=== PATIENT | male | born 1955 ===

== ENCOUNTER 2021-09-10 15:22 | Emergency (ER) | payer BC ==
[2021-09-10] MEDS: Sodium Chloride 0.9% 10 ML Syringe FLUSH PRN ×2 (17:54→19:23)
[2021-09-10] MEDS ORDERED: Sodium Chloride 0.9% 10 ML Syringe FLUSH ONE (18:15)
[2021-09-10] MEDS ORDERED: Iopamidol 612 MG/ML 50 ML SDV IVPUSH ONE (18:15)
[2021-09-10] MEDS ORDERED: Sodium Chloride 0.9% 100 ML IV SCH (18:15)
[2021-09-10] MEDS ORDERED: Iopamidol 612 MG/ML 100 ML Bottle IVPUSH ONE (18:15)
== END 2021-09-10 21:40 ==
LOC: JD.ED 15:22
DX: K83.8 Other specified diseases of biliary tract (principal); I10 Essential (primary) hypertension; K21.9 Gastro-esophageal reflux disease without esophagitis; Z79.899 Other long term (current) drug therapy; Z86.16 Personal history of COVID-19
CPT/HCPCS: 36415; 71275; 74177; 80053; 82977; 83690; 84484; 85025; 85379; 86140; 93005; 99285; J3490; Q9967